=== PATIENT | male | born 1945 | race Caucasian/White ===

== ENCOUNTER 2016-12-27 15:26 | Inpatient (IN) | payer MEDICARE, OTHER ==
[~2016-12-27] VITALS: Ht 172.7 cm; Wt 89.0 kg
--- NOTE | 2016-12-27 15:39 | ED.REPORT ---
HPI-Chest Pain 40 and Over Date of Service Dec 27, 2016 ED Provider: The patient is a 71 year old male with history of hypertension, hyperlipidemia, and tobacco use. The patient presented to [facility] complaining of chest pain that began 1 hour prior to arrival. The pain was localized to a portion of his left chest. His initial EKG showed ST depressions in V2-V6 without reciprocal changes. He was given metoprolol, aspirin, heparin, and Plavix. By the time he arrived to the emergency department he is pain free and his EKG is improved. He felt normal prior to onset of chest pain. He has not had similar symptoms in the past. He denies shortness of breath, dyspnea on exertion, fatigue, fever, chills, cough, abdominal pain, vomiting or diarrhea. He denies history of cardiac disease or cardiac stenting. Dr. Singh was contacted prior to the patients arrival. Nursing Notes Stated Complaint: CHEST PAIN Chief Complaint: Chest Pain Nursing Notes Reviewed: Yes Allergies: Coded Allergies: No Known Allergies (Unverified , 12/27/16) Scheduled Amlodipine (Amlodipine) 10 Mg Tablet 10 MG PO DAILY Atorvastatin (Lipitor) 40 Mg Tablet 40 MG PO DAILY Hydrochlorothiazide (Hydrochlorothiazide) 12.5 Mg Capsule 6-25 MG PO DAILY Miscellaneous Medications Losartan Potassium (Losartan Potassium) 25 Mg Tablet 25 MG PO General Time Seen by MD: 15:39 Chief Complaint Chest pain Hx Obtained From: Patient, EMS Arrived By: Ambulance Sudden in Onset?: Yes Onset Occurred: 1 - 4 hours ago Symptom Duration: Since onset Quality: Painful Radiation: : Does not radiate Migration/Movement: Reports: None Severity: Current: No pain currently Severity: Maximum: Severe Recent Healthcare: No recent hospitalization, Recent doctor visit Similar Sx Previous: No Past Medical History Past Medical History Reports: Hyperlipidemia, Hypertension Past Surgical History Knee surgery Family History Noncontributory Smoking History Current Every Day Smoker Social History Drug Use: THC Other Social History: Good social support, , Local resident Ambulatory Status Independent Review of Systems Constitutional: Denies: Chills, Fever Respiratory: Denies: Dyspnea on exertion, Non-productive cough, Prod cough, bloody, Prod cough, brown, Prod cough, clear, Prod cough, green, Prod cough, white, Prod cough, yellow, Shortness of breath Cardiovascular: Reports: Chest pain GI: Denies: Abdominal pain, Diarrhea, Nausea, Vomiting Complete sys rev & neg: except as marked. Physical Exam Initial Vital Signs Vital Signs (First) Date Time Temp Pulse Resp B/P Pulse Ox O2 Delivery O2 Flow Rate FiO2 12/27/16 15:44 36.7 61 12 120/69 99 Room Air Initial VS: Reviewed Head / Eyes: Atraumatic, Normocephalic, PERRL ENT: Mucous membranes moist, Conjunctiva normal, No scleral icterus Neck: Supple, Non-tender, Full range of motion Lymphatic: No lymphadenopathy Extremities: Vascular intact, Neuro intact, No swelling, No tenderness Skin: Warm, Dry, No cyanosis Neurologic: Alert, Oriented, Nonfocal Psychiatric: Mood/affect normal, Behavior normal, Normal thought content General/Constitutional: Awake, Alert, No acute distress, Well appearing Respiratory / Chest: Atraumatic, Breath sounds NL, Breath sounds = bilat, No respiratory distress, No rales, No rhonchi, No wheezing, No stridor, No chest tenderness Cardiovascular: Heart rate NL, Regular rhythm, Heart sounds NL, No gallop, No murmurs, No rubs, Peripheral circulation NL, Pulses = bilaterally, No gross BP differential Abdomen: Atraumatic, Soft, Non-tender, McBurney's non-tender, No guarding, No rebound, BS normoactive, No distention, No hernia, No palpable mass Interpretation & Diagnostics Lab Results Interpretation Result Diagram: 12/27/16 1555 12/27/16 1555 Test 12/27/16 15:46 12/27/16 15:55 12/27/16 16:41 Hold Urine Received (Received) White Blood Count 9.8th/mm3 (3.8-10.1) Red Blood Count 4.65mil/mm3 (4.40-5.80) Hemoglobin 14.2g/dL (13.8-17.2) Hematocrit 42.2% (41.0-50.0) Mean Corpuscular Volume 90.8fL (81-100) Mean Corpuscular Hemoglobin 30.5pg (27.0-35.0) Mean Corpuscular Hemoglobin Concent 33.6% (32.0-37.0) Red Cell Distribution Width 13.3% (12.3-15.4) Platelet Count 238bil/L (150-400) Neutrophils (%) (Auto) 70.6% (40-74) Lymphocytes (%) (Auto) 19.9% (14-46) Monocytes (%) (Auto) 7.8% (4-12) Eosinophils (%) (Auto) 1.0% (0-5) Basophils (%) (Auto) 0.4% (0-3) Sodium Level 140mEq/L (134-144) Potassium Level 3.8mEq/L (3.5-5.2) Chloride Level 102mEq/L (97-108) Carbon Dioxide Level 24mmol/L (18-29) Blood Urea Nitrogen 16mg/dL (8-27) Creatinine 0.73mg/dL (0.76-1.27) Estimat Glomerular Filtration Rate 113mL/min (>59) Glucose Level 124mg/dL (60-99) Calcium Level 9.0mg/dL (8.5-10.1) Magnesium Level 2.0mg/dL (1.6-2.6) Total Bilirubin 0.6mg/dL (0.0-1.2) Aspartate Amino Transf (AST/SGOT) 32U/L (0-50) Alanine Aminotransferase (ALT/SGPT) 21U/L (0-44) Alkaline Phosphatase 55U/L (25-160) Total Creatine Kinase 234U/L (21-232) Creatine Kinase MB 5.6ng/mL (0.0-10.4) Creatine Kinase MB % 2.4% (0.0-5.0) Troponin T 0.049ug/L (0.0-0.011) Total Protein 6.6g/dL (6.4-8.4) Albumin 4.2g/dL (3.4-5.0) Thyroid Stimulating Hormone (TSH) 1.670uIU/mL (0.450-4.500) Hold Murphy Top Tube Received (Received) Urine Color Yellow (YELLOW) Urine Appearance Clear (CLEAR,HAZY) Urine pH 6.0 (5.0-8.0) Urine Specific [place] 1.005 (1.003-1.035) Urine Protein Negativemg/dL (NEG,TRACE) Urine Glucose (UA) Negativemg/dL (NEGATIVE) Urine Ketones Negativemg/dL (NEGATIVE) Urine Occult Blood Small (NEGATIVE) Urine Nitrite Negative (NEGATIVE) Urine Bilirubin Negative (NEGATIVE) Urine Urobilinogen Normalmg/dL (NORMAL) Urine Leukocyte Esterase Negative (NEGATIVE) Urine RBC 0-2/hpf (0-2) Urine WBC 0-5/hpf (0-5) Urine Epithelial Cells None/hpf (NONE-MOD) Urine Crystals None seen (NONE SEEN) Urine Bacteria Few/hpf (NONE-FEW) Urine Hyaline Casts None/lpf (NONE) Urine Granular Casts None seen (NONE SEEN) Urine Waxy Casts None seen (NONE SEEN) Urine Red Blood Cell Casts None seen (NONE SEEN) Urine White Blood Cell Casts None seen (NONE SEEN) Urine Mucus None seen (None Seen) Urine Trichomonas None seen (NONE SEEN) Urine Yeast None (NONE SEEN) Urinalysis Comment None Urine Culture Reflexed Not indicated ECG Interpretation ECG Interpretation: EKG FROM [facility] shows ST depressions in V2-V6 without ST elevation. Time: 13:30 Interpreted by: ED physician ECG Interpretation: ST depression is essentially resolved on nitro and heparin Time: 15:35 Interpreted by: ED physician X-Ray Chest Interpretation Chest Xray Interpretation: IMPRESSION: Normal chest Dictated by: Delmer Armstrong M.D. on 12/27/2016 at 16:22 Interpretation / Wet Read by: Interpret - Radiologist Re-Eval/Medical Decision Med Decision/Clinical Course Patient arrives with symptoms concerning for acute coronary syndrome initial EKG with significant ST depression anteriorly. After medical management with IV heparin and IV nitrates Plavix metoprolol aspirin all given ST segments normalized. Patient is seen and evaluated admitted to the CCU discussed with hospitalist and cardiology. After being transferred to the floor his initial troponin report returns positive. Calls to both cardiology and hospitalist. Patient remained stable chest pain-free with heparin and nitroglycerin drips running Source of Hx: Old records, EMS, Family Time of Eval: 15:47 Re-Evaluation/Progress Note: Discussed plan for admission with the patient. Consultation #1: Referral / Consult Name: Santhosh Bradshaw MD Consulted With: Hospitalist Call Returned at: 16:04 Insurance Instructor: Will see patient, Agrees with eval, Agrees with plan, Accepts admit Consultation #2: Referral / Consult Name: Shelia Melvin MD Consulted With: Cup Setter Lockstitch: Agrees with eval, Agrees with plan Note: Agrees to consult. Consultation #3: Referral / Consult Name: Radha Fuller MD Consulted With: Hospitalist Call Returned at: 16:25 Insurance Instructor: Will see patient, Agrees with eval, Agrees with plan, Accepts admit Note: Dr. Fuller will now be admitting the patient. Counseled Regarding: Diagnosis, Lab results, Need for admission Discharge & Departure Primary Impression: NSTEMI (non-ST elevated myocardial infarction) Disposition: ADMITTED TO HOSPITAL Discharge Condition All VS Reviewed: Yes Condition: Stable Referrals: Stuart Ballard MD Crit Care Except Billable Proc Time Spent: 30-74 minutes Services Performed: Patient management by me, Time spent at bedside, Reviewing test results, Reviewing imaging, Discussing patient care, Documentation in record, Time with fam/surrogate Scribe Attestation Portions of this note were transcribed by Cheryl Brown. I, Dr. Anguiano personally performed the history, physical exam and medical decision-making; I reviewed and confirmed the accuracy of the information in the transcribed note. Signed by: Rayo Quiñones, 12/27/2016 at 1645. copies to: Stuart Ballard MD, Shawna L MD Dec 27, 2016 15:39 Cheryl Brown Dec 27, 2016 15:48
[2016-12-27 15:44] VITALS: BP 120/69; PULSE 61; RESP 12; O2SAT 99
[2016-12-27 16:06] LABS: BASOPHILS % (AUTO) 0.4 % (0-3); MONOCYTES % (AUTO) 7.8 % (4-12); Mean Corpuscular Hemoglobin 30.5 pg (27.0-35.0); Mean Corpuscular Volume 90.8 fL (81-100); NEUTROPHILS % (AUTO) 70.6 % (40-74); Platelet Count 238 bil/L (150-400)
--- NOTE | 2016-12-27 16:25 | DRSVH ---
PROCEDURE: X-RAY CHEST ONE VIEW, PORTABLE ([id number]) INDICATIONS: pain TECHNIQUE: One view of the chest was acquired. COMPARISON: None. FINDINGS: Surgical changes and devices: None. Lungs and pleura: No pleural effusions or pneumothorax. Lungs are clear. Mediastinum: Mediastinal contours appear normal. Heart size is normal. Bones and chest wall: No suspicious bony lesions. Overlying soft tissues appear unremarkable. IMPRESSION: Normal chest Dictated by: Delmer Armstrong M.D. on 12/27/2016 at 16:22 Approved by: Delmer Armstrong M.D. on 12/27/2016 at 16:23
[2016-12-27] MEDS: Nitroglycerin 50 mg/250 mL D5W 50,000 MCG in IV Premix 1 EACH IV SCH (16:40)
[2016-12-27] MEDS ORDERED: Atropine 1 mg/10 mL (Code) Syringe IVPUSH PRN (16:40)
[2016-12-27] MEDS ORDERED: Heparin 5,000 Unit/mL Inj IVPUSH PRN (16:40)
[2016-12-27] MEDS ORDERED: Heparin 25K Unit/500mL 0.45 NS 25,000 UNIT in IV Premix 1 EACH IV SCH (16:40)
[2016-12-27] MEDS ORDERED: Ondansetron 2 mg/mL 2 mL Inj IVPUSH PRN (16:40)
[2016-12-27] MEDS ORDERED: Alum-Mag Hydrox-Simeth 30 mL Suspension PO PRN (16:40)
[2016-12-27 16:45] LABS: TROPONIN T 0.049 ug/L (0.0-0.011)
[2016-12-27 16:55] LABS: APPEARANCE,URINE CLEAR (CLEAR,HAZY); COLOR,URINE YELLOW (YELLOW); OCCULT BLOOD,URINE SMALL (NEGATIVE); UROBILINOGEN,URINE NORMAL (NORMAL)
--- NOTE | 2016-12-27 16:58 | PCM.HPMED ---
Subjective Date of Service Dec 27, 2016 Primary Provider: Admitting Physician: Primary Care Physician: Stuart Ballard MD Attending Physician: Admit Status: From the Emergency Department, Full Admit, Admit to [facility] Team, Critical Care Chief Complaint: Chest pain History of Present Illness: This is a 71-year-old male who is a resident of [facility]. He developed substernal chest pain at approximately 12:30 PM after eating lunch. He has no prior cardiac history. He presented to [facility] for further evaluation. He noted some nausea with this pain but denies any shortness of breath or diaphoresis. He does have a history of hyperlipidemia and hypertension. He also has been a smoker times many years. His initial EKG showed ST depressions in V2 to V6 without reciprocal changes. [facility] he was given metoprolol aspirin and IV heparin and Plavix. Front Man here was contacted prior to patient arrival in the emergency room. He was pain-free by the time he arrived at [facility] emergency room. Repeat EKG showed reversal of ST depressions and was sinus rhythm at a rate of 61 with a prolonged IN interval of 225. Prior EKG that was done at [facility] February 2013 revealed sinus at a rate of 68 with a prolonged IN interval of 218. Per ER M.D. initial troponin at [facility] was negative. Review of Systems: Patient denies cough, denies any fevers or chills. Denies any history of lung problems. Does not use inhalers at home. All other review of systems are reviewed and are negative except for as in history of present illness. Allergies Coded Allergies: No Known Allergies (Unverified , 12/27/16) Home Medications This information was obtained from patient and other documentation is not present. Lisinopril unknown dose by mouth daily Statin medication daily Hydrochlorothiazide unknown dose by mouth daily Amlodipine unknown dose by mouth daily PMH History of tobacco abuse History of hyperlipidemia Hypertension Surgical History Right knee meniscus repair History of rectal fistula repair Family History Father with a history of CABG age 65 Mother with a history of CVA in late 50s Social History Hx Alcohol Use: Yes Hx Substance Use: Yes Smoking Status: Current Every Day Smoker Living Arrangement: with Family Exam Vital Signs Vital Sign - Last Date Time Temp Pulse Resp B/P Pulse Ox O2 Delivery O2 Flow Rate FiO2 12/27/16 15:44 36.7 61 12 120/69 99 Room Air Exam Constitutional: Elderly male in no acute distress Head: Normocephalic atraumatic Eyes: PERRLA DC EOMI Mouth: No lesions Neck: Carotids 2+ over 4 without bruits bilaterally Chest: Clear to auscultation Cor: Regular rate and rhythm S1-S2 without murmur Abdomen: Soft nontender bowel sounds present Extremities: No pedal edema Skin: No rashes Psych: Mood and affect are appropriate Neuro: Alert and oriented 3, motor strength is intact bilaterally Lab and Diagnostics Labs Laboratory Tests 72 Hours Test 12/27/16 15:46 12/27/16 15:55 12/27/16 16:41 Hold Urine Received (Received) White Blood Count 9.8th/mm3 (3.8-10.1) Red Blood Count 4.65mil/mm3 (4.40-5.80) Hemoglobin 14.2g/dL (13.8-17.2) Hematocrit 42.2% (41.0-50.0) Mean Corpuscular Volume 90.8fL (81-100) Mean Corpuscular Hemoglobin 30.5pg (27.0-35.0) Mean Corpuscular Hemoglobin Concent 33.6% (32.0-37.0) Red Cell Distribution Width 13.3% (12.3-15.4) Platelet Count 238bil/L (150-400) Neutrophils (%) (Auto) 70.6% (40-74) Lymphocytes (%) (Auto) 19.9% (14-46) Monocytes (%) (Auto) 7.8% (4-12) Eosinophils (%) (Auto) 1.0% (0-5) Basophils (%) (Auto) 0.4% (0-3) Sodium Level 140mEq/L (134-144) Potassium Level 3.8mEq/L (3.5-5.2) Chloride Level 102mEq/L (97-108) Carbon Dioxide Level 24mmol/L (18-29) Blood Urea Nitrogen 16mg/dL (8-27) Creatinine 0.73mg/dL (0.76-1.27) Estimat Glomerular Filtration Rate 113mL/min (>59) Glucose Level 124mg/dL (60-99) Calcium Level 9.0mg/dL (8.5-10.1) Magnesium Level 2.0mg/dL (1.6-2.6) Total Bilirubin 0.6mg/dL (0.0-1.2) Aspartate Amino Transf (AST/SGOT) 32U/L (0-50) Alanine Aminotransferase (ALT/SGPT) 21U/L (0-44) Alkaline Phosphatase 55U/L (25-160) Troponin T 0.049ug/L (0.0-0.011) Total Protein 6.6g/dL (6.4-8.4) Albumin 4.2g/dL (3.4-5.0) Hold Murphy Top Tube Received (Received) Urine Color Yellow (YELLOW) Urine Appearance Clear (CLEAR,HAZY) Urine pH 6.0 (5.0-8.0) Urine Specific [place] 1.005 (1.003-1.035) Urine Protein Negativemg/dL (NEG,TRACE) Urine Glucose (UA) Negativemg/dL (NEGATIVE) Urine Ketones Negativemg/dL (NEGATIVE) Urine Occult Blood Small (NEGATIVE) Urine Nitrite Negative (NEGATIVE) Urine Bilirubin Negative (NEGATIVE) Urine Urobilinogen Normalmg/dL (NORMAL) Urine Leukocyte Esterase Negative (NEGATIVE) Urine RBC 0-2/hpf (0-2) Urine WBC 0-5/hpf (0-5) Urine Epithelial Cells None/hpf (NONE-MOD) Urine Crystals None seen (NONE SEEN) Urine Bacteria Few/hpf (NONE-FEW) Urine Hyaline Casts None/lpf (NONE) Urine Granular Casts None seen (NONE SEEN) Urine Waxy Casts None seen (NONE SEEN) Urine Red Blood Cell Casts None seen (NONE SEEN) Urine White Blood Cell Casts None seen (NONE SEEN) Urine Mucus None seen (None Seen) Urine Trichomonas None seen (NONE SEEN) Urine Yeast None (NONE SEEN) Urinalysis Comment None Urine Culture Reflexed Not indicated Result Diagram: 12/27/16 1555 12/27/16 1555 X-Rays, CTs and MRIs PROCEDURE: X-RAY CHEST ONE VIEW, PORTABLE ([id number]) INDICATIONS: pain TECHNIQUE: One view of the chest was acquired. COMPARISON: None. FINDINGS: Surgical changes and devices: None. Lungs and pleura: No pleural effusions or pneumothorax. Lungs are clear. Mediastinum: Mediastinal contours appear normal. Heart size is normal. Bones and chest wall: No suspicious bony lesions. Overlying soft tissues appear unremarkable. IMPRESSION: Normal chest Dictated by: Delmer Armstrong M.D. on 12/27/2016 at 16:22 Approved by: Delmer Armstrong M.D. on 12/27/2016 at 16:23 Assessment & Plan # Acute coronary syndrome with ST depressions noted in V2 to V6, acute, present on admission Cardiology already is aware of this patient. We will continue IV nitroglycerin and IV heparin drip Place nothing by mouth and plan is for cardiac catheterization in the morning Patient currently is pain-free and ST changes had normalized Check serial cardiac enzymes # Hypertension, chronic, present on admission We will make nothing by mouth for now hence we will hold his hypertensives Monitor blood pressures # Hyperlipidemia, chronic, present on admission Check fasting lipid panel in the a.m. Hold his statin for now but restart when not nothing by mouth # Tobacco abuse disorder, chronic, present on admission Importance of tobacco cessation is reviewed with the patient Nicotine patch as needed # Alcohol dependence, chronic, present on admission Has a history of regular alcohol ingestion to 3 glasses of wine daily with out any history of withdrawal Monitor for signs and symptoms of alcohol withdrawal # DVT prophylaxis Patient is on IV heparin drip and use SCDs # CODE STATUS Patient is full code Pain Evaluation: Adequate Pain Control VTE Prophylaxis: Other (on IV heparin drip) Resuscitation Status: CPR: Attempt Resuscitation Time spent 60 minutes Radha Fuller MD Dec 27, 2016 16:58
[2016-12-27 17:00] VITALS: BP 127/74; PULSE 56; RESP 21; O2SAT 95
[2016-12-27 17:04] VITALS: BP 127/74; PULSE 56; RESP 21; O2SAT 95
[2016-12-27] MEDS: 0.9% Sodium Chloride 1,000 ML IV SCH (17:07)
[2016-12-27 17:47] VITALS: BP 115/63; PULSE 55; RESP 10; O2SAT 96
[2016-12-27] MEDS ORDERED: LIP40 PO (18:20)
[2016-12-27] MEDS ORDERED: LOSA25TA21 PO (18:20)
[2016-12-27] MEDS ORDERED: HYDR12.5 PO (18:20)
[2016-12-27] MEDS ORDERED: AMLO10TA3 PO (18:20)
--- NOTE | 2016-12-27 18:28 | NUR ---
P;Chest Pain I: Received pt from ED. Alert and Oriented x3. Denies pain or SOB. Room air with sats stable. Heparin gtt 1000 units/hr. Nitroglycerine at 5 mcqs. Bilateral AC IV's infusing without difficulty. HNV. UA sent in ED. MRSA swab completed. Bedrest and can turn self. SB with first degree Heart block. ST depression. VT, Heart cath and stents booklets given to pt and his . E: Stable S: Alert and oriented. Able to use call light appropriately. Instructed to call before getting up out of bed and pt acknowledges.
[2016-12-27] MEDS: Sodium Chloride LOK Flush 10 mL Syringe IVFLUSH SCH (19:54)
[2016-12-27 20:39] VITALS: BP 119/65; PULSE 56; RESP 16; O2SAT 97
--- NOTE | 2016-12-27 22:45 | NUR ---
Admit to CCU Pt admitted to CCU room 2010 from ED in stable condition and with all belongings. A&O x 3. Able to ambulate from gurney to scale to bed without difficulty or problem. Tele shoes SR 90s. SpO2 high 90s on RA. Denies n/v/d, palpitations, or dizziness at this time. Reports 6/10 "pressure" in abdomen, which is pt's baseline. Oriented pt to room, floor and call light. Pt's [place] decided to go home for evening and will be back in AM. All questions answered to satisfaction of pt and . Admit complete. Care ongoing Addendum: 12/27/16 at 2250 by CARLOS HEAD RN Entered on wrong pt. Please disregard
[2016-12-28] VITALS (19 sets, daily range): BP systolic 104–155; BP diastolic 63–90; PULSE 54–70; RESP 9–20; O2SAT 95–99
[2016-12-28 00:14] LABS: TROPONIN T 0.114 ug/L (0.0-0.011)
[2016-12-28] MEDS: 0.9% Sodium Chloride 1,000 ML IV SCH ×2 (05:07→19:00)
[2016-12-28 05:39] LABS: BASOPHILS % (AUTO) 0.3 % (0-3); EOSINOPHILS % (AUTO) 1.5 % (0-5); MONOCYTES % (AUTO) 8.4 % (4-12); Mean Corpuscular Volume 90.2 fL (81-100); NEUTROPHILS % (AUTO) 58.5 % (40-74); Platelet Count 217 bil/L (150-400)
--- NOTE | 2016-12-28 08:00 | NUR ---
Nitro gtt Pt remains CP. Nitro gtt turned off ~2100. VSS. Remains on heparin gtt. Care ongoing
[2016-12-28] MEDS ORDERED: 0.9% Sodium Chloride 1,000 ML IV ONE (10:12)
[2016-12-28] MEDS: Sodium Chloride LOK Flush 10 mL Syringe IVFLUSH SCH (10:26)
--- NOTE | 2016-12-28 11:06 | CONS ---
[address] [address] CONSULTATION REPORT PATIENT: LANDRY MO : 1945 MR#: [id number] ADMIT: 12/27/2016 JOB ID: [id number] DATE OF SERVICE: 12/28/2016 CARDIOLOGY CONSULTATION: HISTORY OF PRESENT ILLNESS: The patient is a 71-year-old gentleman, who is transferred from [facility] Emergency Department with a [id number] myocardial infarction. I have been asked to see this patient in consultation and assist with his management. The patient has no past cardiac history. He has been treated for some time with atorvastatin for dyslipidemia and several blood pressure medications for hypertension. He does have a family history of coronary artery disease with his father having had two separate four-vessel bypass surgeries in the past. It is unknown if his siblings have had any cardiac issues. He is also a longtime smoker. He has been able to quit smoking twice over the years but has continued to smoke recently. The patient yesterday morning went into his physician's office to get a blood draw for a routine physical examination that is coming up next week. He noted in the morning that he felt a little bit nauseated and just not quite well and thought that it was because he had not eaten that morning. So, he went home and had breakfast and felt a little better. Around lunchtime, he found that he was unable to finish his lunch and his nausea was quite a bit worse. He denied any diaphoresis or vomiting but admitted to increased gas and burping. About the same time, he noted a focal area of deep right precordial discomfort that persisted. This was fairly focal. He described it being around the size of a dime or quarter but deep in his chest and not superficial. Once again, this was not associated with any symptoms of dyspnea or diaphoresis but because of the persistent discomfort and his nausea, he drove himself to the emergency department at [facility]. There, he was noted to have significant ST-segment depression across his anterior precordial leads. He was treated with nitroglycerin, and his discomfort resolved fairly quickly. His ECG showed significant improvement and for that reason, he was transferred and admitted during the night last night. He has remained pain free without recurrent discomfort. He notes a slight amount of mild nausea but generally seems to be getting along well today. His laboratory work shows a normal CBC. His troponin level is increasing from 0.049 to 0.114. EKG shows absence of recurrent ST-segment changes. He has normal renal function, and his total cholesterol is low at 122 with an LDL cholesterol of 47 on his current medications. CURRENT HOME MEDICATIONS: Include: 1. Amlodipine 10 mg a day. 2. Atorvastatin 40 mg daily. 3. Losartan 25 mg daily. 4. Hydrochlorothiazide 12.5 mg daily. ALLERGIES: None known. PAST MEDICAL HISTORY: Otherwise includes previous knee surgery and rectal fistula repair. SOCIAL HISTORY: The patient moved to [facility] about four years ago from [place]. He is retired. He lives with his who works at [facility] in the rural clinic office. He is a current every day smoker as mentioned. The patient states that he drinks about three glasses of wine a day but confirms that is probably an underestimate and has a long history of moderately heavy alcohol intake but no history of alcohol-related problems including liver disease. PHYSICAL EXAMINATION: Shows a pleasant 71-year-old gentleman who is in no acute distress. HEENT examination is unremarkable other than poor dentition and missing teeth. Teeth appear moderately carious. Neck shows normal jugular venous pressure. His carotids are normal without bruits. Chest shows some decreased breath sounds at the right lung base. His cardiac examination notable for somewhat distant heart tones. I do not hear any significant cardiac murmurs. No pericardial friction rub. Abdomen unremarkable. His liver is nonpalpable and nontender. Spleen is not palpable. No aortic bruits or palpable aortic enlargement. Distal extremities demonstrate absence of significant edema. Distal pedal pulses are present. Skin is notable for diffuse multiple petechiae over his chest suspicious for being alcohol related. He is alert and oriented with no focal regional neurologic findings. DIAGNOSTIC DATA: Lab work and EKGs are as noted above. EKG this morning demonstrates some nonspecific inferior ST and T-wave abnormalities and some sloping ST-segment depression persisting in V5 and V6. Chest x-ray is reviewed and shows normal cardiac silhouette and clear lung mcduffie. IMPRESSION: The patient presents with atypical right precordial symptoms but very clear-cut evidence of myocardial ischemia with positive enzymes and EKG changes. He is n.p.o. and anticipating cardiac catheterization today. I have spoken with Dr. Melvin who has graciously agreed to do the procedure if he gets a chance later this afternoon. I have reviewed the cardiac catheterization and stenting procedure in detail with the patient and his . We reviewed the potential risks of the procedure and the benefits of the procedure. We talked about the potential need for long-term antiplatelet therapy and the importance of compliance with antiplatelet therapy following stent placement. He has no contraindications to antiplatelet therapy. He is in agreement and will go ahead and make arrangements for the patient to sign the consent form and when Dr. Melvin has an opportunity later today, will go ahead and proceed with diagnostic coronary angiography and potential intervention. I will follow up with the patient's care tomorrow and hopefully, he will be ready to go home. I suspect that he has some degree of alcohol-related liver disease, given his diffuse petechiae. He needs to be encouraged to cut back on his alcohol intake, and we talked at some length about smoking cessation as well today.
--- NOTE | 2016-12-28 12:28 | PCM.HPMED ---
Subjective Date of Service Dec 28, 2016 Primary Provider: Admitting Physician: Radha Fuller MD Primary Care Physician: Stuart Ballard MD Attending Physician: Radha Fuller MD Chief Complaint: Chest pain History of Present Illness: This is a 71-year-old male who is a resident of [facility]. He developed substernal chest pain at approximately 12:30 PM after eating lunch. He has no prior cardiac history. He presented to [facility] for further evaluation. He noted some nausea with this pain but denies any shortness of breath or diaphoresis. He does have a history of hyperlipidemia and hypertension. He also has been a smoker times many years. His initial EKG showed ST depressions in V2 to V6 without reciprocal changes. [facility] he was given metoprolol aspirin and IV heparin and Plavix. History Faculty Member here was contacted prior to patient arrival in the emergency room. He was pain-free by the time he arrived at [facility] emergency room. Repeat EKG showed reversal of ST depressions and was sinus rhythm at a rate of 61 with a prolonged TN interval of 225. Prior EKG that was done at [facility] February 2013 revealed sinus at a rate of 68 with a prolonged TN interval of 218. Per ER M.D. initial troponin at [facility] was negative. Allergies Coded Allergies: No Known Allergies (Unverified , 12/27/16) [facility] Social History Hx Alcohol Use: Yes Alcoholic Drinks Per Day: 2 glasses every night red wine Hx Substance Use: No Smoking Status: Current Every Day Smoker Living Arrangement: with Family Exam Vital Signs Vital Sign - Last Date Time Temp Pulse Resp B/P Pulse Ox O2 Delivery O2 Flow Rate FiO2 12/28/16 12:12 36.9 68 16 128/63 96 Room Air Exam Constitutional: Well nourished male , in bed comfortably, by bedside HEENT : Normocephalic atraumatic, sclerae is anicteric. Neck : Supple, no JVD , trachea is midline Chest: Normal respiratory effort. No chest wall deformity Lung : Clear bilaterally , no crackles , no wheezing Heart : Regular rate and rhythm S1-S2 Abdomen: Soft mild tenderness in the epigastrium no rebound no guarding Extremities: No pedal edema, no cyanosis, no calf tenderness Neuro: Grossly non focal , Confused Skin : No rash, no ulcer Lab and Diagnostics Result Diagram: 12/28/16 0506 12/28/16 0506 X-Rays, CTs and MRIs PROCEDURE: X-RAY CHEST ONE VIEW, PORTABLE ([id number]) INDICATIONS: pain TECHNIQUE: One view of the chest was acquired. COMPARISON: None. FINDINGS: Surgical changes and devices: None. Lungs and pleura: No pleural effusions or pneumothorax. Lungs are clear. Mediastinum: Mediastinal contours appear normal. Heart size is normal. Bones and chest wall: No suspicious bony lesions. Overlying soft tissues appear unremarkable. IMPRESSION: Normal chest Dictated by: Delmer Armstrong M.D. on 12/27/2016 at 16:22 Approved by: Delmer Armstrong M.D. on 12/27/2016 at 16:23 Assessment & Plan 1.- SNTEMI : POA . Transferred from [facility] for cardiac evaluation /Catheterization Chest pain subsided on heparin drip and monoglyceride EKG shows ST depressions noted in V2 to V6, acute, present on admission Troponin +. Patient is scheduled for cardiac cath today 2.- Hypertension, chronic, present on admission We will make nothing by mouth for now hence we will hold his hypertensives Monitor blood pressures 3. Hyperlipidemia, chronic, present on admission lipid panel. On statins 4. Tobacco abuse disorder, chronic, present on admission Patient has a near 100 years/pack smoking. Cessation discussed . Nicotine patch contraindicated at this time 5. Alcohol dependence, chronic, present on admission H/o of 3 alcohol drink daily mainly wine. Monitor for withdrawal Hemodynamically and clinically stable. Plan of care as above pending cardiac cath. Pain Evaluation: Adequate Pain Control VTE Prophylaxis: Other (on IV heparin drip) Resuscitation Status: CPR: Attempt Resuscitation Time spent 35 minutes Santhosh Bradshaw MD Dec 28, 2016 12:28
--- NOTE | 2016-12-28 12:32 | PCM.PNMED ---
Subjective Date of Service Dec 28, 2016 Subjective Patient seen and examined at bedside . He is chest pain free on heparin drip and nitroglycerine. He is scheduled for cardiac cath today Exam Vital Signs Vital Sign - Last Date Time Temp Pulse Resp B/P Pulse Ox O2 Delivery O2 Flow Rate FiO2 12/28/16 12:12 36.9 68 16 128/63 96 Room Air Exam Constitutional: Well-nourished male, in bed comfortably, AAOx 3 HEENT : Normocephalic atraumatic, sclerae is anicteric. Neck : Supple, no JVD , trachea is midline Chest: Normal respiratory effort. No chest wall deformity Lung : Clear bilaterally , no crackles, no wheezing Heart : Regular rate and rhythm S1-S2 Abdomen: Soft mild tenderness in the epigastrium no rebound no guarding Extremities: No pedal edema, no cyanosis, no calf tenderness Neuro: Grossly non focal , Confused Skin : No rash, no ulcer IVs and Medications Medications Reviewed: Medications were reviewed in detail Lab and Diagnostics Result Diagram: 12/28/16 0506 12/28/16 0506 X-Rays, CTs and MRIs PROCEDURE: X-RAY CHEST ONE VIEW, PORTABLE ([id number]) INDICATIONS: pain TECHNIQUE: One view of the chest was acquired. COMPARISON: None. FINDINGS: Surgical changes and devices: None. Lungs and pleura: No pleural effusions or pneumothorax. Lungs are clear. Mediastinum: Mediastinal contours appear normal. Heart size is normal. Bones and chest wall: No suspicious bony lesions. Overlying soft tissues appear unremarkable. IMPRESSION: Normal chest Dictated by: Delmer Armstrong M.D. on 12/27/2016 at 16:22 Approved by: Delmer Armstrong M.D. on 12/27/2016 at 16:23 Assessment & Plan 1.- SNTEMI : POA . Transferred from [facility] for cardiac evaluation /Catheterization Chest pain subsided on heparin drip and monoglyceride EKG shows ST depressions noted in V2 to V6, acute, present on admission Troponin +. Patient is scheduled for cardiac cath today 2.- Hypertension, chronic, present on admission We will make nothing by mouth for now hence we will hold his hypertensives Monitor blood pressures 3. Hyperlipidemia, chronic, present on admission lipid panel. On statins 4. Tobacco abuse disorder, chronic, present on admission Patient has a near 100 years/pack smoking. Cessation discussed . Nicotine patch contraindicated at this time 5. Alcohol dependence, chronic, present on admission H/o of 3 alcohol drink daily mainly wine. Monitor for withdrawal Hemodynamically and clinically stable. Plan of care as above pending cardiac cath. Pain Evaluation: Adequate Pain Control VTE Prophylaxis: Other (on IV heparin drip) Resuscitation Status: CPR: Attempt Resuscitation Time spent 25 minutes Santhosh Bradshaw MD Dec 28, 2016 12:32
[2016-12-28] MEDS ORDERED: Heparin 1,000 Unit/mL 10 mL Inj ONE (13:40)
[2016-12-28] MEDS ORDERED: Heparin 1,000 Units/500 mL NS Premix IV ONE (13:40)
[2016-12-28] MEDS ORDERED: Heparin 5,000 Units/500 mL NS Premix IV ONE (13:40)
[2016-12-28] MEDS ORDERED: Nitroglycerin 50,000 mcg/250 mL D5W Premix IV ONE (13:41)
[2016-12-28] MEDS ORDERED: fentaNYL-PF 50 mCg/mL 2 mL Inj ONE (14:02)
[2016-12-28 14:05] LABS: Mean Corpuscular Hemoglobin 29.7 pg (27.0-35.0); Mean Corpuscular Volume 90.2 fL (81-100)
--- NOTE | 2016-12-28 14:44 | NUR ---
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 Family not present at this time to complete assessment. A: Pt who lives in [facility] with . P: INSPECTORS AND REGULATORY OFFICERS to attempt assessment with pt post cardiac procedure. INSPECTORS AND REGULATORY OFFICERS to continue to follow CARLOS Ferris
--- NOTE | 2016-12-28 17:38 | NUR ---
Pt return from Communication Clerk Pt transported in bed. custodial laborer report received from Karen HAMMOND. Stent placed in mid RCA, with a Rt groin perclose. Site is pink, soft, non-tender with 2+pulse in dorsalis pedis. Pt on bedrest until 1914. Pt is on RA, tele SR/elle 50-60s, BP 155/77. Denies pain, has not voided post procedure, c/o slight abdominal discomfort (states gas).
--- NOTE | 2016-12-28 17:49 | NUR ---
TEREZA PT WAS RECEIVED FROM MULTI CARE TECHNICIAN AT 1515. RIGHT GROIN WITH PERCLOSE HAS REMAINED SOFT, NON TENDER, NO BLEEDING OR HEMATOMA NOTED. RIGHT DP 2+. PT IS TAKING PO FLUIDS AND A FEW CRACKERS AND TOLERATED WELL. NS AT 100/HR. HE WAS TRANSFERRED BACK TO ROOM 2012 AT 1740 AND RN TO RN BEDSIDE HANDOFF WAS DONE WITH ANKUR Clement RN. TELE ON. BEDREST UNTIL 1915.
[2016-12-28] MEDS ORDERED: Atropine 1 mg/10 mL (Code) Syringe IVPUSH PRN (17:55)
[2016-12-28] MEDS ORDERED: Ondansetron 2 mg/mL 2 mL Inj IVPUSH PRN (17:55)
[2016-12-28] MEDS ORDERED: 0.9% Sodium Chloride 400 ML (4 HRS) IV ONE (17:55)
[2016-12-28] MEDS ORDERED: 0.9% Sodium Chloride 250 ML BOLUS IV PRN (17:55)
[2016-12-28] MEDS ORDERED: Sodium Chloride LOK Flush 10 mL Syringe IVFLUSH PRN (17:55)
--- NOTE | 2016-12-28 18:50 | DI95 ---
[address] [address] INTERVENTIONAL CARDIAC CATHETERIZATION PATIENT: LANDRY MO : 1945 MR#: [id number] ADMIT: 12/27/2016 JOB ID: [id number] PATIENT PROFILE: The patient is a 71-year-old male who is a lifelong smoker. He presented with [id number] myocardial infarction. PROCEDURE: 1. Retrograde left heart catheterization. 2. Selective coronary angiography. 3. Balloon angioplasty and stenting to the mid right coronary artery. 4. Left ventricular angiogram. 5. Vascular closure device, Perclose. COMPLICATION: None. METHOD: Retrograde left heart catheterization was performed from the right groin under 1% lidocaine local anesthesia using a 6-Sri [place]ankan sheath. Selective coronary angiogram was performed in multiple projections, including cranial and caudal angulations with hand injected contrast via JL4 and JR catheters. A 3DRC catheter could not engage the right coronary ostium. The 6-Sri [place]ankan JR4 catheter caused pressure damping when engaged the right coronary ostium. Heparin 100 units/kg and prasugrel 60 mg were given. A 5-Sri [place]ankan JR4 guide was used to engage the right coronary ostium. A Runthrough wire was placed inside the right coronary artery. The lesion was pre-dilated with a 2.5 x 12 mm balloon. A Resolute Integrity 2.5 x 18 mm stent was placed inside the mid right coronary artery lesion and deployed at 14 atmospheres for 25 seconds. Nitroglycerin 100 mcg was given intracoronary. Final angiogram was obtained. A 5-Sri [place]ankan angulated pigtail catheter was advanced to the left ventricle and left ventricular angiogram was performed in the 30 degree DRIVER view by injecting contrast at the rate of 12 cc/second for 2-1/2 seconds. This catheter was withdrawn. Right femoral angiogram was performed. Following sheath removal, hemostasis was achieved by using a Perclose device. The patient tolerated procedure well. He was transferred to [facility] in good condition. Total contrast used 120 cc. FLUOROSCOPY TIME: 4.7 minutes. RESULTS: 1. Selective coronary angiogram: a. Left main coronary artery has 20% stenosis in the mid portion. b. The left anterior descending artery is quite small in size. It is likely to be diffuse tubular disease with no significant focal stenosis. c. The circumflex artery and obtuse marginal branch are also quite small in size with no significant focal severe stenosis. It is likely to have diffuse tubular disease. d. The dominant right coronary artery has focal 95% stenosis in the mid portion. 2. Balloon angioplasty and stenting was performed to the tight culprit mid right coronary artery lesion by deploying one drug eluting stent (2.5 x 18 mm) to achieve an excellent angiographic result with HUBERT-3 flow distally. 3. Left ventricular angiogram demonstrated near-normal left ventricular systolic function (visually estimated ejection fraction 55% to 60%). The inferior wall is moderately hypokinetic. The remaining segments contract normally. 4. There is no gradient across the aortic valve on catheter withdrawal. 5. Aortic pressure is 134/63 mmHg. Left ventricular pressure is 133/10 mmHg. 6. Left ventricular end-diastolic pressure is 20 mmHg. CONCLUSION: 1. Diffuse tubular disease of all coronary arteries. 2. Focal 95% stenosis of the mid right coronary artery. This was successfully treated with one drug-eluting stent. 3. LVEF 55% to 60% with inferior wall hypokinesis. 4. LVEDP is 22 mmHg. MTDD
[2016-12-28] MEDS: Nitroglycerin 50 mg/250 mL D5W 50,000 MCG in IV Premix 1 EACH IV SCH (19:00)
--- NOTE | 2016-12-28 19:45 | NUR ---
P: Chest Pain I: Pt denied Chest Pain or SOB. Room air. NPO for ammunition assembly laborer. Booklets given to pt on cardiac cath and stents. Chlora bath done and pulses marked for ammunition assembly laborer. Heparin dc'd per . NS increased to 100cc/hr. at bedside. NSR?SB. BP stable. Pt changed to PCU Tele status. E: Stable S:Alert and oriented. Uses call light appropriately. laboratory associate came and picked the pt up. Pt stable.
[2016-12-29] VITALS (7 sets, daily range): BP systolic 123–155; BP diastolic 74–89; PULSE 58–68; RESP 15–18; O2SAT 95–97
[2016-12-29] MEDS: Sodium Chloride LOK Flush 10 mL Syringe IVFLUSH SCH ×2 (00:30→07:58)
[2016-12-29 05:10] LABS: BASOPHILS % (AUTO) 0.2 % (0-3); MONOCYTES % (AUTO) 9.6 % (4-12); Mean Corpuscular Hemoglobin 30.4 pg (27.0-35.0); Mean Corpuscular Volume 90.2 fL (81-100); NEUTROPHILS % (AUTO) 67.9 % (40-74); Platelet Count 221 bil/L (150-400)
--- NOTE | 2016-12-29 05:58 | NUR ---
Cardiac Pt off bedrest @ 1930, up to the BR independently, tolerated ambulation well. Rt groin puncture site with C/D/I drsg, distal pulses 2+, no signs of bleeding, no hematoma. Taking PO well, IV saline locked. vital signs stable.
--- NOTE | 2016-12-29 09:20 | NUR ---
[facility] Signed
--- NOTE | 2016-12-29 10:11 | NUR ---
Social Work: Initial Assessment/Discharge D: Per EMR review, pt is a 71 year old male admitted for NSTEMI. Pt is Medicare with [employer]; pt has no LTC insurance or VA benefits. PCP is Stuart Ballard MD. NOK Is Mounika Garcia, , . Pt declined AD information from [employer]. Readmit score is low, 0/8. [employer] met with pt at bedside to discuss dcp. Sw role explained and contact information provided. See initial assessment. Pt lives in [place] with his . Pt lives in a two-story home with 10 internal and 10 external stairs. Pt is I with ADLS and uses no DME. Pt continues to drive and has never had HH or SKilled rehab. Pt identified no sw needs or barriers and states his will transport once medically stable. Pt discussed in am rounds. Pt likely to discharge home today. No needs identified from MD. EMR review; no sw needs or barriers at this time. A: Pt who is I at baseline. P: Anticipate pt to discharge home via POV once medically stable; [employer] to continue to follow CARLOS Ferris Addendum: 12/29/16 at 1016 by NAYAN BOYER Amended: Links added.
--- NOTE | 2016-12-29 10:41 | PCM.DIMED ---
Discharge Instructions Date of Service Dec 29, 2016 Dates of Hospitalization Dec 27, 2016 at 16:48 Discharge Diagnosis Discharge Diagnosis NSTEMI, CAD , Hypertension, Hyperlipidemia, Tobacco dependence Diet Low fat, Low Sodium Activity No restrictions Call your provider Chest pain Patient Instructions Cardiology as outpatient in 2 weeks Follow-up with PCP in: 1 week (Primary care doctor ) Follow-up in: 2 weeks (Cardiology as outpatient in 2 weeks ) Santhosh Bradshaw MD Dec 29, 2016 10:41
[2016-12-29] MEDS ORDERED: CLOP75TA28 PO (10:45)
[2016-12-29] MEDS ORDERED: NICO1PAT6 TOPICAL (10:45)
[2016-12-29] MEDS ORDERED: ASPI81TA3 PO (10:45)
[2016-12-29] MEDS ORDERED: METO25TA6 PO (10:45)
--- NOTE | 2016-12-29 10:51 | PCM.DC.MED ---
Discharge Summary Date of Service Dec 29, 2016 Dates of Hospitalization Date of Hospital Admission Dec 27, 2016 at 16:48 Date of Discharge: Dec 29, 2016 Providers: Admitting Physician: Radha Fuller MD Primary Care Physician: Stuart Ballard MD Attending Physician: Radha Fuller MD Diagnosis at Time of Discharge Diagnosis at Time of Discharge NSTEMI, CAD , Hypertension, Hyperlipidemia, Tobacco dependence Consultations Cardiology Procedures XRay, CTs & MRIs PROCEDURE: X-RAY CHEST ONE VIEW, PORTABLE ([id number]) INDICATIONS: pain TECHNIQUE: One view of the chest was acquired. COMPARISON: None. FINDINGS: Surgical changes and devices: None. Lungs and pleura: No pleural effusions or pneumothorax. Lungs are clear. Mediastinum: Mediastinal contours appear normal. Heart size is normal. Bones and chest wall: No suspicious bony lesions. Overlying soft tissues appear unremarkable. IMPRESSION: Normal chest Dictated by: Delmer Armstrong M.D. on 12/27/2016 at 16:22 Approved by: Delmer Armstrong M.D. on 12/27/2016 at 16:23 Invasive Procedures Cardiac catheterization : 1. Diffuse tubular disease of all coronary arteries. 2. Focal 95% stenosis of the mid right coronary artery. This was successfully treated with one drug-eluting stent. 3. LVEF 55% to 60% with inferior wall hypokinesis. 4. LVEDP is 22 mmHg. Brief History This is a 71-year-old male who is a resident of [facility]. He developed substernal chest pain at approximately 12:30 PM after eating lunch. He has no prior cardiac history. He presented to [facility] for further evaluation. He noted some nausea with this pain but denies any shortness of breath or diaphoresis. He does have a history of hyperlipidemia and hypertension. He also has been a smoker times many years. His initial EKG showed ST depressions in V2 to V6 without reciprocal changes. [place] [employer] he was given metoprolol aspirin and IV heparin and Plavix. [employer] here was contacted prior to patient arrival in the emergency room. He was pain-free by the time he arrived at [facility] emergency room. Repeat EKG showed reversal of ST depressions and was sinus rhythm at a rate of 61 with a prolonged MT interval of 225. Prior EKG that was done at [facility] February 2013 revealed sinus at a rate of 68 with a prolonged MT interval of 218. Per ER M.D. initial troponin at [facility] was negative. Hospital Course 1.- SNTEMI : POA . Transferred from [facility] for cardiac evaluation /Catheterization Chest pain subsided on heparin drip and monoglyceride EKG shows ST depressions noted in V2 to V6, acute, present on admission Troponin +. Patient underwent cardiac catheterization and stenting on right CA. Report : 1. Diffuse tubular disease of all coronary arteries. 2. Focal 95% stenosis of the mid right coronary artery. This was successfully treated with one drug-eluting stent. 3. LVEF 55% to 60% with inferior wall hypokinesis. 4. LVEDP is 22 mmHg. 2.- Hypertension, chronic, present on admission : near goal Started on BB ( metoprolol 25 mg BID . Losartan and HCTZ. Amlodipine discontinued 3. Hyperlipidemia, chronic, present on admission lipid panel. On statins 4. Tobacco abuse disorder, chronic, present on admission Patient has a near 100 years/pack smoking. Cessation discussed . Nicotine patch provided 5. Alcohol dependence, chronic, present on admission Cessation discussed Patient is discharge home in stable condition Exam Vital Signs (Last) Date Time Temp Pulse Resp B/P Pulse Ox O2 Delivery O2 Flow Rate FiO2 12/29/16 09:25 61 12/29/16 07:55 36.5 18 155/77 97 Room Air Exam Constitutional: Pleasant , in bed comfortably.NAD. AAOx 3 HEENT : sclerae is anicteric. Neck : Supple, no JVD , trachea is midline , no thyromegaly Chest: Normal respiratory effort. No use of accessory muscles Lung : Clear bilaterally , no crackles, no wheezing Heart : Regular rate and rhythm S1-S2, no gallop, no murmurs Abdomen: benign Extremities: No pedal edema, no cyanosis, no calf tenderness Neuro: Grossly non focal Skin : No rash, no ulcer Test 12/27/16 15:46 12/27/16 15:55 12/27/16 16:41 12/27/16 23:00 Hold Urine Received (Received) Hemoglobin A1c 6.0% (4.8-5.6) Magnesium Level 2.0mg/dL (1.6-2.6) Thyroid Stimulating Hormone (TSH) 1.670uIU/mL (0.450-4.500) Hold Murphy Top Tube Received (Received) Urine Color Yellow (YELLOW) Urine Appearance Clear (CLEAR,HAZY) Urine pH 6.0 (5.0-8.0) Urine Specific [place] 1.005 (1.003-1.035) Urine Protein Negativemg/dL (NEG,TRACE) Urine Glucose (UA) Negativemg/dL (NEGATIVE) Urine Ketones Negativemg/dL (NEGATIVE) Urine Occult Blood Small (NEGATIVE) Urine Nitrite Negative (NEGATIVE) Urine Bilirubin Negative (NEGATIVE) Urine Urobilinogen Normalmg/dL (NORMAL) Urine Leukocyte Esterase Negative (NEGATIVE) Urine RBC 0-2/hpf (0-2) Urine WBC 0-5/hpf (0-5) Urine Epithelial Cells None/hpf (NONE-MOD) Urine Crystals None seen (NONE SEEN) Urine Bacteria Few/hpf (NONE-FEW) Urine Hyaline Casts None/lpf (NONE) Urine Granular Casts None seen (NONE SEEN) Urine Waxy Casts None seen (NONE SEEN) Urine Red Blood Cell Casts None seen (NONE SEEN) Urine White Blood Cell Casts None seen (NONE SEEN) Urine Mucus None seen (None Seen) Urine Trichomonas None seen (NONE SEEN) Urine Yeast None (NONE SEEN) Urinalysis Comment None Urine Culture Reflexed Not indicated Total Creatine Kinase 220U/L (21-232) Creatine Kinase MB 7.1ng/mL (0.0-10.4) Creatine Kinase MB % 3.2% (0.0-5.0) Troponin T 0.114ug/L (0.0-0.011) Test 12/28/16 05:06 12/28/16 10:42 12/29/16 04:42 Triglycerides Level 79mg/dL (0-149) Cholesterol Level 122mg/dL (100-199) LDL Cholesterol, Calculated 47.200mg/dL (0-99) VLDL Cholesterol 15.800mg/dL HDL Cholesterol 59mg/dL (>39) Cholesterol/HDL Ratio 2.07 (0.0-4.4) Activated Partial Thromboplast Time 46.8sec (22.8-33.0) White Blood Count 9.7th/mm3 (3.8-10.1) Red Blood Count 4.38mil/mm3 (4.40-5.80) Hemoglobin 13.3g/dL (13.8-17.2) Hematocrit 39.5% (41.0-50.0) Mean Corpuscular Volume 90.2fL (81-100) Mean Corpuscular Hemoglobin 30.4pg (27.0-35.0) Mean Corpuscular Hemoglobin Concent 33.7% (32.0-37.0) Red Cell Distribution Width 13.3% (12.3-15.4) Platelet Count 221bil/L (150-400) Neutrophils (%) (Auto) 67.9% (40-74) Lymphocytes (%) (Auto) 21.2% (14-46) Monocytes (%) (Auto) 9.6% (4-12) Eosinophils (%) (Auto) 1.0% (0-5) Basophils (%) (Auto) 0.2% (0-3) Sodium Level 141mEq/L (134-144) Potassium Level 4.1mEq/L (3.5-5.2) Chloride Level 106mEq/L (97-108) Carbon Dioxide Level 23mmol/L (18-29) Blood Urea Nitrogen 11mg/dL (8-27) Creatinine 0.76mg/dL (0.76-1.27) Estimat Glomerular Filtration Rate 108mL/min (>59) Glucose Level 104mg/dL (60-99) Calcium Level 8.1mg/dL (8.5-10.1) Total Bilirubin 0.7mg/dL (0.0-1.2) Aspartate Amino Transf (AST/SGOT) 27U/L (0-50) Alanine Aminotransferase (ALT/SGPT) 21U/L (0-44) Alkaline Phosphatase 47U/L (25-160) Total Protein 6.0g/dL (6.4-8.4) Albumin 3.6g/dL (3.4-5.0) Discharge Medications Discharge Medications Aspirin Chew (Aspirin Chew) 81 Mg Chew 81 MG PO DAILY Prescribed by: STEFANO BRADSHAW MD Atorvastatin (Lipitor) 40 Mg Tablet 40 MG PO DAILY (Reported) Clopidogrel (Clopidogrel) 75 Mg Tablet 75 MG PO DAILY Prescribed by: STEFANO BRADSHAW MD Hydrochlorothiazide (Hydrochlorothiazide) 12.5 Mg Capsule 6-25 MG PO DAILY ( Reported) Losartan Potassium (Losartan Potassium) 25 Mg Tablet 50 MG PO DAILY (Reported) Metoprolol Tartrate (Metoprolol Tartrate) 25 Mg Tablet 25 MG PO BID Prescribed by: STEFANO BRADSHAW MD As needed Nicotine 21 mg/24 hr Patch (Nicotine 21 mg/24 hr Patch) 1 Each Patch.td24 1 PATCH TOPICAL DAILY PRN PRN For Tobacco Withdrawal Prescribed by: STEFANO BRADSHAW MD Followup Plan Disposition: Home Discharge Diet: Low fat, Low Sodium Discharge Activity: No restrictions Patient Instructions Cardiology as outpatient in 2 weeks Follow-up with PCP in: 1 week (Primary care doctor ) Follow-up in: 2 weeks (Cardiology as outpatient in 2 weeks ) Time spent 35 minutes . Patient seen and examined on discharge date Stefano Bradshaw MD Dec 29, 2016 10:51
--- NOTE | 2016-12-29 13:30 | PROG NOTE ---
[address] [address] PROGRESS NOTE PATIENT: LANDRY MO : 1945 MR#: [id number] ADMIT: 12/27/2016 JOB ID: [id number] DATE: 12/29/2016 SUBJECTIVE: the patient presented with an acute coronary syndrome on December 27. Coronary angiography was performed yesterday by Dr. Melvin demonstrating diffuse tubular atherosclerosis involving both the LAD and circumflex without any major obstructive disease but a high-grade 95% right coronary artery lesion. He was treated with a drug coated stent 2.5 mm and has done well subsequently. His right groin site is unremarkable and the patient is feeling well and anxious to go home. The hospitalist has made arrangements for his discharge and given him a prescription for metoprolol 25 mg b.i.d. to take instead of his amlodipine at home. He has also received a prescription for clopidogrel 75 mg daily and I have recommended that he stay on clopidogrel probably for a year. I have spent quite a bit of time reviewing smoking cessation recommendations with this gentleman. He has been successful in quitting for certain periods of time on a couple of occasions in the past and seems interested, but perhaps not completely convinced. He should be enrolled in the cardiac rehab program at [facility] and already has a scheduled followup with Dr. Ballard next week. He also has fairly group grossly carious teeth and I suspect he should be seen by his dentist. Dental health plays a role with vascular disease and that should be attended to. In addition, he has fairly prominent telangiectasias over his back and chest with a history of fairly heavy drinking and this is something also that Dr. Ballard may want to further investigate and that this gentleman should be counseled on. My schedule is completely booked over the next three months, but I am going to ask my office to schedule him for followup at my next available opportunity, perhaps 2-3 months. At that point I will check on his progress in terms of smoking and alcohol reduction and follow up on his cardiovascular health. We will try to get him scheduled to see me in the office in [place]. It is my pleasure assisting with this gentleman's care. We look forward to seeing him back in a few months. DATE:
--- NOTE | 2016-12-29 14:15 | NUR ---
Discharge Note: Discussed discharge instructions and medications. Hardcopy Rx was given to patient. Pt verbalized understanding of followup appointments. Pt Ambulating in room independently without report of CP, SOB or palpitations. R groin site is C/D/I, soft, mildly tender to touch, no bruising noted, pedal pulses palpable. IV DC'd intact by RN. Pt exited unit via WC with all personal belongings and was transported home in a personal vehicle.
== END 2016-12-29 14:14 | disposition home or self-care (01) | DRG 247 ==
LOC: SED 15:26 → CCU 16:48 → PCC 12-28 10:35
PROVIDERS: ADMIT Specialist; ATTEND Specialist
PROC: 027034Z Dilation of Coronary Artery, One Artery with Drug-eluting Intraluminal Device, Percutaneous Approach (ICD-10-PCS; principal; 2016-12-28)
PROC: 4A023N7 Measurement of Cardiac Sampling and Pressure, Left Heart, Percutaneous Approach (ICD-10-PCS; 2016-12-28)
PROC: B2111ZZ Fluoroscopy of Multiple Coronary Arteries using Low Osmolar Contrast (ICD-10-PCS; 2016-12-28)
PROC: B2151ZZ Fluoroscopy of Left Heart using Low Osmolar Contrast (ICD-10-PCS; 2016-12-28)
DX: I21.4 Non-ST elevation (NSTEMI) myocardial infarction (principal); I25.119 Atherosclerotic heart disease of native coronary artery with unspecified angina pectoris; F10.20 Alcohol dependence, uncomplicated; I10 Essential (primary) hypertension; E78.5 Hyperlipidemia, unspecified; F17.210 Nicotine dependence, cigarettes, uncomplicated